=== PATIENT | female | born 1995 | race Caucasian/White ===

== ENCOUNTER 2022-09-07 05:04 | Inpatient (IN) | payer BC, SELFPAY ==
[2022-09-07] VITALS (22 sets, daily range): BP systolic 94–118; BP diastolic 57–77; PULSE 64–104; RESP 16–18; TEMP 36.3–37.2; O2SAT 96; BMI 28.1
[2022-09-07 06:04] LABS: Hemoglobin* 12.1 gm/dL (12.0-16.0)
[2022-09-07 06:49] LABS: SARS PCR* Negative SARS-CoV-2 (Negative)
--- NOTE | 2022-09-07 07:41 | P.OBHP_ITS ---
OB - H&P: HPI Labor/Induction History of Present Illness Time Seen by Provider: 07:41 Date Seen: 09/07/22 Chief Complaint: So is a 27 year old 6 para 4013 at 39 and 0/7 weeks gestation by LMP consistent with a 1st trimester ultrasound, who was scheduled for a repeat C- section today. However, on admission monitoring she was having contractions, has a history of 3 vaginal deliveries, and she and her spouse are planning on having 7 order a children. She also declines blood products and I reviewed with the patient and her spouse, Gm, that the more C-sections she has, the higher risk to her and future babies due to concerns for scar tissue and possible abnormal placentation. She states that she would prefer to have her water broken rather than use Pitocin for induction. She likes to labor in the shower and deliver on hands and knees which is completely fine. She has been feeling nonpainful contractions. Has noted normal movement. Her most recent delivery was an emergency after PROM at home. She and her spouse called 911 and took an ambulance to the hospital where she had an emergency C- section under general anesthesia. Baby was immediately transported to the [facility] in [place] and at 3 weeks of age. She is appropriately anxious and is asking preop questions. I did a bedside ultrasound to verify position which was LOT, on cervical exam her cervix is 2 cm dilated/80%/0/soft/posterior. Cervantes score: 9. Membranes are intact. She signed consent form understanding that we would not give her blood products unless her spouse recommended she get blood: This is for zoroastrian reasons. Risks associated with /TOLAC are due to uterine rupture = the scar on the uterus breaking open. Chance of uterine rupture 0.07%. If uterine rupture occurs: 50% of women require blood products due to internal bleeding (she declines), 25% require hysterectomy to control hemorrhaging, 3-4% of neonates have long-term neurologic problems (cerebral palsy) placental abruption at the time of uterine rupture resulting in lack of oxygenation, less than 1% or maternal mortality. Reviewed TOLAC vs. RLTCS. GENERAL APPEARANCE: Pleasant, , well-groomed woman in no acute distress. VITAL SIGNS: as noted in nursing notes HEAD: Normocephalic, atraumatic. THYROID: no masses, nodularity, tenderness or enlargement. LUNGS: Clear to auscultation bilaterally without wheezes, rales or rhonchi. HEART: Regular rate and rhythm with normal S1 and S2. No gallop, rub or murmur. ABDOMEN: Gravid. Soft, nontender, nondistended, with normal bowels sounds throughout. FUNDAL HEIGHT: 39 cm EFM: 140's, (+) accels, (-) decels, PRESENTATION: Vertex by Joshua's maneuvers and ultrasound. SVE: 2 cm/ 80 %/ 0/soft/posterior. Cervantes score: 9 EXTREMITIES: No cyanosis, clubbing, or edema. No varicosities. NEUROLOGIC: Normal gait and balance. Normal deep tendon reflexes at bilateral patella 2+/2, equal without clonus. PSYCHIATRIC: alert and oriented x3. Normal speech pattern, eye contact and affect. SKIN: Warm, dry, and well perfused. Good turgor. No lesions, nodules or rashes. Assessment: 27-year-old 6 para 4013 at 39 weeks 0 days gestation induction of labor for history of cord prolapse and loss with her most recent delivery. History of 3 vaginal deliveries. Shoulder dystocia with her 2nd baby. Plan: 1. Patient declines blood products. 2. AROM when able. 3. Patient would like to labor in the shower for pain control. 4. Expect vaginal delivery. 5. Patient understands that the OBGYN and operating room staff will be in the hospital until delivery once she is in active labor. Chief complaint: Maternity Narrative: So Tobar is a 27 year old female Meds Home Medications and Allergies Home Medications Medication Instructions Recorded Confirmed Type cholecalciferol (vitamin D3) 25 25 mcg PO QDAY 08/30/22 09/07/22 History mcg (1,000 unit) capsule cod liver oil 5 ml PO QDAY 08/30/22 09/07/22 History docosahexaenoic acid 200 mg mg PO 08/30/22 08/30/22 History capsule ( DHA) ferrous sulfate 325 mg (65 mg 325 mg PO QDAY 08/30/22 09/07/22 History iron) tablet (FeroSul) vitamin B complex (B 1 tab PO QDAY 08/30/22 09/07/22 History Complex-Vitamin B12 tablet) Allergies Allergy/AdvReac Type Severity Reaction Status Date / Time No Known Drug Allergies Allergy Verified 09/07/22 06:18 OB - H&P: Exam Physical Exam: Vital signs: Temp Pulse Resp BP 98.5 F 80 16 101/59 L 09/07/22 06:11 09/07/22 06:11 09/07/22 06:11 09/07/22 06:11 OB - Results Labs Labs: Short CBC 09/07/22 Range/Units 05:59 Hgb 12.1 (12.0-16.0) gm/dL
[2022-09-07 07:59] LABS: Hepatitis B Surface Antigen* Negative (Negative)
[2022-09-07 08:09] LABS: HIV 1/2/P24 Combo Screen* Negative (Negative)
[2022-09-07 08:31] LABS: Basophils Absolute Auto 0.04 K/uL (0.00-0.30); Basophils Percent Auto 0.4 % (0.0-3.0); Eosinophils Absolute Auto 0.13 K/uL (0.00-0.50); Eosinophils Percent Auto 1.2 % (0.0-7.0); Hematocrit 39.1 % (33.0-51.0); Hemoglobin* 13.1 gm/dL (12.0-16.0); Immature Granulocytes Abs Auto 0.08 K/uL (0.00-0.30); Immature Granulocytes Pct Auto 0.7 %; Lymphocytes Absolute Auto 2.53 K/uL (0.90-2.90); Lymphocytes Percent Auto 23.1 % (20-44); Mean Corpuscular HGB Conc 34 gm/dL (32-36); Mean Corpuscular Hemoglobin 31 pg (26-34); Mean Corpuscular Volume 94 fL (80-100); Monocytes Percent Auto 6.7 % (0.0-11.0); Neutrophils Absolute Auto 7.42 K/uL (1.7-7.0); Neutrophils Percent Auto 67.9 % (42.0-72.0); Platelet Count* 170 K/uL (140-440); RDW Coefficient of Variation % 13.4 % (11.5-15.5); Red Blood Count 4.17 m/uL (4.00-5.20); White Blood Count* 10.93 K/uL (4.50-11.00)
[2022-09-07 08:36] LABS: Slide Review Reflex No
--- NOTE | 2022-09-07 10:23 | PM.OBPNL ---
Subjective Time Seen by Provider: 10: Date Seen: 09/07/22 Narrative: Subjective: So is comfortable with contractions. Verbal consent obtained for artificial rupture of membranes. Vital signs: Per electronic medical record. EFM: Baseline 140s, + accelerations, - decelerations, moderate variability, reactive. Category 1. [place]: Contractions every 1-3 minutes. SVE: 4 cm/90 %/0. AROM at 10:15 a.m.: Clear fluid Assessment: 27-year-old 6 para 4013 at 39 weeks 0 days gestation undergoing TOLAC, induction of labor with AROM Plan: 1. Will hold Pitocin augmentation unless the patient does not make cervical change after AROM. 2. Planning to be in the shower for the active phase of labor. Objective Vital Signs: Last Vital Signs Temp 98.5 F 09/07/22 06:11 Pulse 104 H 09/07/22 10:01 Resp 16 09/07/22 06:11 BP 101/60 09/07/22 10:01
[2022-09-07] MEDS: LACTATED RINGERS 1000 ML 1,000 ML 125 ML IV (12:59)
[2022-09-07] MEDS: OXYTOCIN 30 unit/500 ML in NS 30 UNIT/500 ML BAG IVPB (13:00)
[2022-09-07] MEDS: IBUPROFEN 600 MG TABLET PO (17:22)
--- NOTE | 2022-09-07 17:54 | W.PM.VAGDELN ---
OB Procedure Vag Delivery Mother Details Mother Details: So is a 27 year-old, 6, Para 3, admitted on 09/07/22 at 39weeks 0 Days gestation. Additional Details Amniotic Membrane Status: AROM Amniotic Membrane Rupture Date: 09/07/22 Amniotic Membrane Rupture Time: 10:15 Amniotic Membrane Fluid Description: Clear Waterbirth: No Pitcoin: Yes Induction Method: per pitocin protocol and AROM Labor Onset: 09/07/2022 at 1400 Complete: 16:55 Pushin:55 Heart: heart tones during second stage were category 2 with variable decelerations to the 110's with contractions, moderate variability. Reassuring. Delivery Details Delivery Date: 09/07/22 Delivery Time: 17:03 Route of delivery: Infant Gender: Male Viability: Alive; Heart Rate Present Position at Delivery: OA Delivery Details: Delivered over first-degree perineal laceration via spontaneous vaginal delivery. was placed on maternal abdomen.? Cord was clamped and cut after the placenta delivered. Nose and mouth were bulb suctioned.? Infant weight pending. 1 Minute Interval Total Score: 7 5 Minute Interval Total Score: 8 Additional Details Shoulder Dystocia: No Placenta Delivery Time: 17:29 Placental Delivery Description: Spontaneous Delivery repair: other (No repair necessary.) Procedure Done: Global Laceration: Perineal - 1st Degree Blood Loss Measurement Type: EBL (150 mL) Bakri Used: No Sponge/Need Count Correct: Yes Cord Vessel Description: 3 Vessels Event Summary Status: Mother and were stable after delivery. The patient is planning on . The patient declined all vaccines, vitamin K and erythromycin eye ointment. 's name: Red
[2022-09-08] MEDS: IBUPROFEN 600 MG TABLET PO (02:09)
[2022-09-08 05:05] VITALS: BP 105/69; PULSE 96; RESP 16; TEMP 36.6; O2SAT 96
--- NOTE | 2022-09-08 07:36 | PM.OBDSVD1 ---
DS: Providers Provider Time Seen by Provider: 07:36 Date Seen: 09/08/22 Date of admission: 09/07/22 05:04 Primary care physician: Not a Local Provider Admitting Clinician: Judy Aguila MD Attending Physician on discharge: Judy Aguila MD Date of Discharge: 09/08/22 DS: Diagnosis Discharge Diagnosis (1) (vaginal after ): Status: Acute Exam Const: Vital Signs, click to edit/add: Vital Signs - 24 hr 09/07/22 08:21 09/07/22 10:01 09/07/22 13:10 Temperature Pulse Rate 86 104 H 98 Pulse Rate [Right Pulse Oximeter] Respiratory Rate Blood Pressure 107/69 101/60 106/62 Blood Pressure [Le ft Arm] Pulse [facility] 14:14 09/07/22 14:57 09/07/22 17:30 Temperature Pulse Rate 96 89 93 Pulse Rate [Right Pulse Oximeter] Respiratory Rate Blood Pressure 117/63 118/77 112/63 Blood Pressure [Le ft Arm] Pulse [facility]ximetry [facility]22 17:45 09/07/22 18:00 09/07/22 18:15 Temperature Pulse Rate 93 90 83 Pulse Rate [Right Pulse Oximeter] Respiratory Rate Blood Pressure 117/67 116/62 117/60 Blood Pressure [Le ft Arm] Pulse [facility]ximetry [facility] 18:30 09/07/22 18:45 09/07/22 19:00 Temperature Pulse Rate 86 95 85 Pulse Rate [Right Pulse Oximeter] Respiratory Rate Blood Pressure 114/60 112/60 110/64 Blood Pressure [Le ft Arm] Pulse Oximetry [facility] 19:27 09/07/22 19:30 09/07/22 10:45 Temperature 98.6 F Pulse Rate 88 84 Pulse Rate [Right Pulse Oximeter] Respiratory Rate Blood Pressure 114/57 L 117/64 Blood Pressure [Le ft Arm] Pulse Oximetry [facility]22 11:45 09/07/22 13:00 09/07/22 14:15 Temperature 98.1 F 99 F 98.1 F Pulse Rate Pulse Rate [Right Pulse Oximeter] Respiratory Rate 18 Blood Pressure Blood Pressure [Le ft Arm] Pulse Oximetry Oxygen Delivery Me thod 09/07/22 15:02 09/07/22 19:00 09/07/22 16:00 Temperature 98.1 F 98.3 F 98.6 F Pulse Rate Pulse Rate [Right Pulse Oximeter] Respiratory Rate 18 Blood Pressure 94/64 Blood Pressure [Le ft Arm] Pulse Oximetry Oxygen Delivery Me thod 09/07/22 19:15 09/07/22 23:03 09/08/22 05:05 Temperature 97.3 F L 97.9 F Pulse Rate Pulse Rate [Right Pulse Oximeter] 64 96 Respiratory Rate 16 16 Blood Pressure Blood Pressure [Le ft Arm] 109/69 105/69 Pulse Oximetry 96 96 Oxygen Delivery Me thod Room Air Room Air Room Air OB - DS: Summary Hospital Course Hospital Course: HOSPITAL COURSE: So is a 27 year old, G6 now P 5014 admitted on 09/07/2022 at 39 Weeks, 0 Days gestation for a scheduled repeat but decided to do a TOLAC as she and her spouse are planning on having 7-8 children and was recommended by her historiography teacher. She had an uncomplicated vaginal. She delivered a viable male infant. She is breast feeding. the patient has done well. Vitals have been stable. She has remained afebrile. Vital Signs: See EMR Discharge Examination GENERAL APPEARANCE: normal affect, alert, no distress MOOD: appropriate CHEST: clear to auscultation and percussion HEART: regular rate and rhythm ABDOMEN: soft, non-tender the uterine fundus is 2 cm Below Umbilicus, Midline and is appropriate for the stage of recovery. PERINEUM: mild edema of the perineum, there is a Periurethral Laceration 1st degree that is healing well. EXTREMITIES: normal and no edema Discharge Criteria patient is ambulating without assistance, urinating without difficulty, tolerating a regular diet without n/v, and with [adequate pain control] with po medications. She is normotensive. Disposition: Home/Self Care She is requesting discharge home. Peripartum Data Infant delivery method: Laceration description: Perineal - 1st Degree Procedures: Procedures Operation Date: 09/07/22 07:15 <No data on this case meets the specified criteria> complications: none [place] Infant Gender: Male Discharge Plan: Home Status at Discharge Cognitive/behavioral status at discharge: Normal. Functional status at discharge: independent ambulation Overall status at discharge: patient is back to baseline Time Spent with Patient Time attestation: Total time spent providing and/or coordinating discharge services: Time spent: Less than 30 minutes Discharge Plan Discharge Disposition: Home, Self-Care Date of Admission: 09/07/22 05:04 Primary Care Provider: Provider,Not a Local Condition: Stable Anticipated Discharge Date/Time: 09/08/22 09:00 Discharge Medications: New docusate sodium 100 mg Capsule 100 mg PO DAILY PRN (Reason: constipation) Qty: 100 0RF ibuprofen 600 mg Tablet 600 mg PO Q6H PRNQty: 30 0RF Continued DHA 200 mg capsule PO ferrous sulfate [FeroSul] 325 mg (65 mg iron) tablet 325 mg PO QDAY cod liver oil Oil 5 ml PO QDAY vitamin B complex [B Complex-Vitamin B12] Tablet 1 tab PO QDAY cholecalciferol (vitamin D3) 25 mcg (1,000 unit) capsule 25 mcg PO QDAY Discharge Orders: Discharge Order (Routine); Ordered 09/08/22 Ordered By: Judy Aguila Patient Education: Choosing Between Vaginal After () or Repeat... (GEN) Additional Instructions: Activity restrictions: For all deliveries: Nothing vaginally for 6 weeks: no tampons/intercourse After a vaginal delivery: No lifting or exercise restrictions. Return to work/school: 1. 6 weeks after a vaginal deliver Symptoms to report to doctor: -Bleeding that saturates more than one pad per hour ?-Passing clots larger than the size of a golf ball ?-Pain not relieved by prescribed medication ?-Fever above 100.4 degrees Fahrenheit ?-A foul vaginal odor ?-Difficulty in emotions, mood and functions ?-Thoughts of hurting yourself and/or ?-Painful, reddened area in your breast ?-Any drainage, redness or tenderness in your IV/epidural site ?-Severe headache that doesn't improve after taking medications ?-Changes in vision, including temporary loss of vision, blurred vision, and/or light sensitivity ?-Upper abdominal pain (usually under ribs on the right side) ?-Decrease in urination or painful, frequent urinating ?-Chest pain ?-Shortness of breath ?-Tenderness or pain with redness and/swelling in the calf(s) of your leg Follow-up: 1. Optional 2 week visit with a [facility] provider : discuss infant care/feeding concerns, screen for anxiety/depression, discuss control options. 2. A 6 week visit for an annual physical exam. consultation services are available to all mothers and babies for the first year after delivery.? To make an appointment, please call [phone]. Discharge Diet: Regular Follow Up Appointments: Provider,Not a Local [Primary Care Provider] - Judy Aguila MD [Staff Physician] - Forms: [employer] Info Instructions
[2022-09-08 08:24] LABS: Hemoglobin* 12.5 gm/dL (12.0-16.0)
[2022-09-08 09:00] VITALS: BP 108/73; PULSE 64; RESP 18; TEMP 36.4
== END 2022-09-08 10:38 | disposition home or self-care (01) | DRG 560 ==
PROVIDERS: Admitting Provider Obstetrics & Gynecology; Visit Provider Obstetrics & Gynecology
DX: O34.211 Maternal care for low transverse scar from previous cesarean delivery (principal); O70.0 First degree perineal laceration during delivery; Z3A.39 39 weeks gestation of pregnancy; Z37.0 Single live birth
CPT/HCPCS: 36415; 85018; 85025; 86703; 86850; 86900; 86901; 87340; 87635; A9270; J2274; J7120

== ENCOUNTER 2024-02-13 10:15 | Outpatient (CLI) | payer BC, SELFPAY ==
--- NOTE | 2024-02-13 10:15 | CRLHL7_ITS ---
For Patients: As a result of the Cures Act, medical imaging exams and procedure reports are released immediately into your electronic medical record. You may view this report before your referring provider. If you have questions, please contact your health care provider. INDICATION: First trimester scan, establish dates. COMPARISON: None. TECHNIQUE: Real-time fernando-scale imaging of the pelvis was performed. FINDINGS: Sonographic imaging demonstrates a single living intrauterine gestation. The embryo demonstrates a regular cardiac rate measuring 159 beats per minute. The embryo`s crown-rump length measurement of 1.2 cm corresponds to a gestational age of 7 weeks 2 days with a sonographic due date of 09/29/2024. There is a normal-appearing yolk sac. There are no gross abnormalities noted within the embryo at this early state of development. The gestational sac has a normal appearance. There is no evidence of a perigestational hemorrhage. The amount of fluid within the sac appears appropriate for gestational age. The cervix is closed. The myometrium appears normal. The ovaries are of normal size. Corpus luteal cyst left ovary measuring 12 x 9 x 10 millimeters. There are no suspicious fluid collections noted in the cul-de-sac. IMPRESSION: Normal first trimester OB ultrasound exam. Gestational age calculated at 7 weeks 2 days with a sonographic due date of 09/29/2024. Dictated by Wang Schultz MD @ 02/14/2024 6:42:53 AM (Electronically Signed)
== END 2024-02-13 10:16 | disposition home or self-care (01) ==
LOC: US 10:16
PROVIDERS: Visit Provider Physician Assistant
DX: Z34.91 Encounter for supervision of normal pregnancy, unspecified, first trimester (principal); Z3A.01 Less than 8 weeks gestation of pregnancy
CPT/HCPCS: 76817; 82728; 86592; 86703; 86704; 86706; 86762; 86787; 86803; 86850; 86900; 86901; 87086; 87340

== ENCOUNTER 2024-03-26 14:06 | Outpatient (CLI) | payer BC, SELFPAY ==
--- NOTE | 2024-03-26 14:45 | CRLHL7_ITS ---
For Patients: As a result of the Cures Act, medical imaging exams and procedure reports are released immediately into your electronic medical record. You may view this report before your referring provider. If you have questions, please contact your health care provider. INDICATION: Vaginal spotting in the setting of . Concern for possible failed . COMPARISON: 02/13/2024 TECHNIQUE: Grayscale pelvic ultrasound via a transabdominal approach. FINDINGS: [place] intrauterine . [place]-rump length of the embryonic pole is 2.1 cm. No demonstrable cardiac activity. IMPRESSION: Cessation of previously documented embryonic cardiac activity diagnostic for failed early . Dictated by Brian Wilson MD @ 03/26/2024 3:17:01 PM (Electronically Signed)
== END 2024-03-26 14:07 | disposition home or self-care (01) ==
LOC: US 14:06
PROVIDERS: Visit Provider Obstetrics & Gynecology
DX: O20.9 Hemorrhage in early pregnancy, unspecified (principal)
CPT/HCPCS: 76801

== ENCOUNTER 2024-06-25 09:04 | Outpatient (CLI) | payer BC, SELFPAY ==
--- NOTE | 2024-06-25 09:15 | CRLHL7_ITS ---
For Patients: As a result of the Century Cures Act, medical imaging exams and procedure reports are released immediately into your electronic medical record. You may view this report before your referring provider. If you have questions, please contact your health care provider. INDICATION: First trimester scan, establish dates. COMPARISON: None. TECHNIQUE: Real-time fernando-scale imaging of the pelvis was performed. FINDINGS: Sonographic imaging demonstrates a single living intrauterine gestation. The embryo demonstrates a regular cardiac rate measuring 169 beats per minute. The embryo`s crown-rump length measurement of 2.2 cm corresponds to a gestational age of 8 weeks 6 days with a sonographic due date of 01/29/2025. There is a normal-appearing yolk sac. There are no gross abnormalities noted within the embryo at this early state of development. The gestational sac has a normal appearance. There is and inferior perigestational hemorrhage measuring 2.9 x 0.7 x 0.9 cm. The amount of fluid within the sac appears appropriate for gestational age. The cervix is closed. The myometrium appears normal. The ovaries are of normal size. Corpus luteal cyst right ovary. There are no suspicious fluid collections noted in the cul-de-sac. IMPRESSION: Single living intrauterine with sonographic gestational age 8 weeks 6 days and sonographic due date 01/29/2025. Inferior subchorionic hemorrhage measures 2.9 x 0.7 x 0.9 cm. Dictated by Wang Schultz MD @ 06/25/2024 1:20:20 PM (Electronically Signed)
== END 2024-06-25 09:05 | disposition home or self-care (01) ==
LOC: US 09:06
PROVIDERS: Visit Provider Obstetrics & Gynecology
DX: Z34.91 Encounter for supervision of normal pregnancy, unspecified, first trimester (principal); O20.9 Hemorrhage in early pregnancy, unspecified; Z3A.08 8 weeks gestation of pregnancy
CPT/HCPCS: 76817

== ENCOUNTER 2024-06-25 10:14 | Outpatient (CLI) | payer BC, SELFPAY | END 2024-06-25 10:15 | disposition home or self-care (01) | PROVIDERS: PCP Advanced Practice Midwife; Visit Provider Advanced Practice Midwife | DX: Z34.91 Encounter for supervision of normal pregnancy, unspecified, first trimester (principal); Z3A.08 8 weeks gestation of pregnancy | CPT/HCPCS: 83020; 83021; 84443; 85660; 86592; 86703; 86704; 86706; 86762; 86787; 86803; 86850; 86900; 86901; 87086; 87340 ==

== ENCOUNTER 2024-09-10 10:55 | Outpatient (CLI) | payer BC, SELFPAY | END 2024-09-10 10:56 | disposition home or self-care (01) | LOC: US 10:56 | PROVIDERS: Visit Provider Obstetrics & Gynecology | DX: Z34.92 Encounter for supervision of normal pregnancy, unspecified, second trimester (principal); O43.122 Velamentous insertion of umbilical cord, second trimester; Z3A.21 21 weeks gestation of pregnancy | CPT/HCPCS: 76805; 76817 ==

== ENCOUNTER 2024-09-14 12:33 | Outpatient (CLI) | payer BC, SELFPAY | END 2024-09-14 12:34 | disposition home or self-care (01) | LOC: NFLDREF 12:34 | PROVIDERS: Visit Provider Obstetrics & Gynecology | DX: R10.2 Pelvic and perineal pain (principal); R82.90 Unspecified abnormal findings in urine | CPT/HCPCS: 87086 ==

== ENCOUNTER 2024-11-05 10:15 | Outpatient (CLI) | payer BC, SELFPAY | END 2024-11-05 10:16 | disposition home or self-care (01) | LOC: NFLDREF 11-08 08:13 | PROVIDERS: Visit Provider Obstetrics & Gynecology | DX: Z34.83 Encounter for supervision of other normal pregnancy, third trimester (principal) | CPT/HCPCS: 86592 ==

== ENCOUNTER 2024-12-18 08:50 | Outpatient (CLI) | payer BC, SELFPAY ==
--- NOTE | 2024-12-18 09:15 | CRLHL7_ITS ---
For Patients: As a result of the Cures Act, medical imaging exams and procedure reports are released immediately into your electronic medical record. You may view this report before your referring provider. If you have questions, please contact your health care provider. OB ULTRASOUND FOLLOW-UP, 12/18/2024 CLINICAL HISTORY: Velamentous cord insertion. COMPARISON: None. TECHNIQUE: Real time fernando scale imaging of the fetus was performed. Transabdominal imaging performed. FINDINGS: ANDI by LMP: 01/29/2025. GA: 34 weeks 0 days. GESTATION: Single. CERVIX: Not visualized. POSITIONING: Vertex. AMNIOTIC FLUID: 7.5 cm SDP. PLACENTA: Technique: TA. Placenta Position: Anterior. DOPPLERS: Heart Rate: 124 bpm. BIOMETRY: BPD: 9.0 cm, 36 weeks 2 days. 95% HC: 32.7 cm, 37 weeks 1 day. 88% AC: 32.3 cm, 36 weeks 1 day. 96% FL: 6.5 cm, 33 weeks 3 days. 27% FL/AC Ratio: 20.12% HC/AC Ratio: 1.02. EFW: 2717 grams, 6 lb 0 oz. Age by this US: 35 weeks 5 days. ANDI by this US: 01/17/2025. Percentile by ANDI: 87% IMPRESSION: 1. Sonographic gestational age 35 weeks 5 days and sonographic due date 01/17/2025. Sonographic age 12 days ahead of the clinical age. 2. Estimated weight 87th percentile. Abdominal circumference 96th percentile. Wang Schultz M.D. Diagnostic Radiologist [email or web address] Transcribed: 10:56 am DW/Dictated by: Wang Schultz MD @ 12/21/2024 6:14:00 AM (Electronically Signed)
== END 2024-12-18 08:51 | disposition home or self-care (01) ==
LOC: US 08:50
PROVIDERS: Visit Provider Obstetrics & Gynecology
DX: O43.123 Velamentous insertion of umbilical cord, third trimester (principal); O36.63X0 Maternal care for excessive fetal growth, third trimester, not applicable or unspecified; Z3A.34 34 weeks gestation of pregnancy
CPT/HCPCS: 76816

== ENCOUNTER 2025-01-07 10:01 | Outpatient (CLI) | payer BC, SELFPAY ==
[2025-01-08 09:38] LABS: Strep B DNA Probe Negative (Negative)
[2025-01-08 10:07] LABS: Strep B Susceptibility Needed? No
== END 2025-01-07 10:02 | disposition home or self-care (01) ==
PROVIDERS: Visit Provider Obstetrics & Gynecology
DX: O09.93 Supervision of high risk pregnancy, unspecified, third trimester (principal); R06.02 Shortness of breath; Z3A.36 36 weeks gestation of pregnancy
CPT/HCPCS: 82565; 82570; 84156; 84450; 84460; 84520; 87081; 87653

== ENCOUNTER 2025-01-10 23:35 | Outpatient (CLI) | payer BC, SELFPAY ==
[2025-01-11 01:02] VITALS: BP 106/60; PULSE 84; TEMP 36.7
[2025-01-11 01:55] LABS: Amnisure Rom* Negative; Clue Cells <20% Clue Cells Seen (None Seen); Trichomonas No Trichomonas Seen (None Seen); Yeast No Yeast Seen (None Seen)
--- OUTSIDE RECORDS SUMMARY | 2025-01-11 02:00 | XMS_ITS | Clinical Summary ---
Author Organization [facility] Address [address] [place] [id number] Care Team Providers Care Business Analytics Director Name Role Phone Abimbola aGyle MD Unavailable U Taina Brumfield NP Primary Care Provider [phone] Allergies No known active allergies Medications vitamin-folic acid 1 mg ( VITAMIN) tablet/capsule Take 1 tablet by mouth once daily. 0 10/15/2016 Active Famotidine-Ca Carb-Mag Hydrox (Pepcid Complete) 10-800-165 mg chewIndications: Chronic GERD Chew 20 mg by mouth two times daily. 360 Tablet 11/30/2022 Active FeroSuL 325 mg (65 mg iron) tablet Take 1 Tablet by mouth once every other day. 06/29/2024 Active progesterone micronized 200 mg capsule Insert 200 mg into the vagina. 09/10/2024 Active Active Problems Problem Noted Date Diagnosed Date Major depressive disorder, s roland episode, severe without psychotic features 12/15/2014 Anxiety 12/15/2014 Estimated Date of Delivery Comme nts Yes 01/29/2025 Resolved Problems Problem Noted Date Diagnosed Date Resolved Date 02/04/2021 11/27/2022 Umbilical cord prolapse 02/04/202111/12 care, subsequent pr egnancy, unspecified trimester 08/19/2017 11/27/2022 Overview (08/19/2017): Care Provider: VRK, Baby Doctor: Dr. Benita Jane Employer [employer], Work/ [employer], Contact # [phone], Employer [employer] Feeding breast, circumcision:yes Short interval between pregnancies Short interval between pregn ancies complicating , antepartum 08/19/201711/27 Acute blood loss anemia 09/01/2016 04/09/2016 Vacuum extraction, delivered , current hospitalization 09/01/2016 10/15/2016 Vacuum extraction, delivered , current hospitalization 08/31/2016 10/15/2016 Normal labor 08/30/2016 10/15/2016 Supervision of normal first 03/30/2016 10/15/2016 Overview (04/30/2016): Care Provider: Nick NICOLE Doctor: Dr. Benita Jane Employer [employer], Work/ [employer], Contact # [phone], Employer [employer] Feeding breast, Gender GIRL!! Postoperative abdominal pain 11/27/2022 Encounters Date Type Department Care Team Description 01/10/2025 7:43 PM CDT - 01/10/2025 9:36 PM CDT Hospital Encounter [address] [address] Wang Hernández MD Discharge Disposition: Home Self Care 01/10/2025 Hospital Encounter [address] [place] [address] 01/10/2025 Travel 10/19/2024 11:15 AM CDT Office Visit [address] [address] Jennie Nagy PA Back Pain 10/19/2024 Travel from Last 3 Months Immunizations Immunization Administration Dates Next Due DTP-HIB 1994,1994,1994 DTaP 11/01/2006,01/20/1999,07/30/1995 Hepatitis B (Peds) 1994,1994, 994 Influenza, IIV3 (Age >=3 years) 05/03/2016 Influenza, IIV4 05/03/2016 MENINGOCOCCAL VACCINE 2 VIAL 2MO-55YO (MENVEO) 11/02/2014 MMR 01/20/1999,07/30/1995 Oral Polio Vaccine 08/23/1998, 6,1994,07/05 Tdap 07/17/2016 Tuberculin (PPD) 01/28/2015,01/13/2015, 5 Family History Medical History Relation Name Comments Good Health Brother 1 Good Health Brother 2 Good Health Father Good Health Maternal Grandfather Cancer-colon Maternal Grandmother Cancer-pancreatic Maternal Grandmother Depression Mother Heart Disease Mother Hypertension Mother Alzheimer's disease Paternal Grandfather Cancer Paternal Grandmother Cancer-pancreatic Paternal Grandmother Depression Sister 1 Zuri Relation Name Status Comments Brother 1 Alive Brother 2 Alive Father Alive Maternal Grandfather Alive Maternal Grandmother Mother Alive Paternal Grandfather Paternal Grandmother Sister 1 Zuri Alive Sister 2 Hui Alive Social History Tobacco Use Types Packs/Day Years Used Date Smoking Tobacco: Never Smokeless Tobacco: Never Comments:both parents smoke Alcohol Use Standard Drinks/Week Comments No 0 (1 standard drink = 0.6 oz pur e alcohol) PHQ-2 Answer Date Recorded PHQ-2 TOTAL SCORE 3 06/20/2023 Social Connections Answer Date Recorded Do you often feel lonely or isolated from those around you? 0 06/20/2023 Financial Resource Strain Answer Date R ecorded Difficulty of Paying Living Expenses 3 06/20/2023 Difficulty of Paying Living Expenses Not on file 06/20/2023 Food Insecurity Answer Date Recorded Do you worry your food will run out before you are able to buy more? 1 06/20/2023 Transportation Needs Answer Date Record ed Does lack of transportation keep you from medica l appointments? 1 06/20/2023 Does lack of transportation keep you from work, meetings or getting things that you need? 1 06/20/2023 Housing Stability Answer Date Recorded What is your housing situation today? 1 06/20/2023 Interpersonal Safety Answer Date Record ed Are you being hit, kicked, p ushed or yelled at (see row info)? No 01/10/2025 Interpersonal Safety Abuse 12 - 18 Not on file 01/10/2025 Interpersonal Safety Ambulatory Vulnerability No t on file 01/10/2025 Utilities Answer Date Recorded Do you have trouble paying f or utilities (for example, heat, electricity, water, phone)? 1 06/20/2023 Estimated Date of Delivery Comme nts Yes 01/29/2025 Sex and Gender Information Value Date Recorded Sex Assigned at Not on file Legal Sex Female 5:49 AM COMPLIANCE CLERK Gender Identity Not on file Sexual Orientation Not on file Occupation Industry Job Start Date Job End Date Not on file Not on file Not on file Not on file Obstetrics History Para Term AB IAB SAB Ectopic Multiple Livin g Live Births 8 4 3 1 1 0 3 4 Date Outcome GA Total Labor Labor/2nd/3rd Weight Sex Type Anes PTL Manda A1 A5 Name Clin 2016 Term 38w 5d 3.4 kg (7 lb 8 oz) F VAGINA L VACU Epidur al Livin g Coral ine AAR Complications:None 7 SAB SPONTA NEOUS 2017 Term F Vag N Livin g Comments:Shoulder dyst ocia 2018 Term M Vag Livin g Comments:Baby with imp erforate anus 2020 Para 0h 02m 0h 02m 4.01 kg (8 lb 13.5 oz) M C-Sect ion Genera l Neona carolin Demis e 0 2 Jer IBARRA, Kane Olsen MD Complications:Cord prolapse Living Status Comments:Hypox ic 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 See encounter summary. Notes Progress Notes - Hospital En counter - 01/10/2025 - GA:37w2d 01/11/2025 - 37w3d - Judy Sol RN Patient discharged home at 2136 pm. Patient leaving AMA, does not want to stay for monitoring for [address] Hernández advised. AVS given to patient. Advised patient that she is still tyree every 2-5 minutes and she should be monitored at her chosen facility [facility]. She was advised that she is a grandmultip and her delivery, if she is in labor, will probably go faster and these contractions could be early labor. Patient aware of the risks and choosing to leave [facility] facility. Patient left AMA, paperwork signed. Judy Sol RN .................... 01/10/2025 9:40 PM 01/11/2025 - 37w3d - Judy Sol RN OB Triage Note Patient presents to triage at 1948 for evaluation of leakage of fluid. Patient is accompanied by none. Patient is a with a due date of 01/29/2025, Alternate ANDI Entry. So is 37w2d weeks' gestation as of 01/10/2025. records obtained and reviewed. Patient reports the following symptoms: Ruptured Membranes Unsure complicated by: none OB Medical Screening Exam BP 106/62 (Cuff Size: Adult Regular) Pulse 81 Temp 98.1 F (36.7 C) Resp 18 Ht 1.549 m (5' 1) Wt 62.1 kg (137 lb) LMP (Exact Date) SpO2 97% BMI 25.89 kg/m EFM and toco applied after verbal consent obtained. Triage assessment completed. ASSESSMENT BABY A Movement: Present Monitor Mode: External/US Decelerations / Type: Prolonged SVE: yes Dilation: 3 Effacement (%): 70 Station: -2 Cervical Consistency: Medium Cervical Position: Middle Method: Manual OB Examiner: NPV RN CONTRACTIONS Is Patient Having Contractions?: Yes Plan of Care Provider, Dr. Hernández, informed of: patient complaint(s), reason for visit, OB/medical history, patient vital signs, assessment, contractions, membrane status and SVE. Plan per provider: Patient to be monitored for [address] Hernández at bedside and explained to patient to stay for monitoring due to contraction pattern. Patient states she does not feel like she is in labor and would like to leave and go to her hospital in [place] when she feels like she is in labor. Patient would like to leave, AMA paperwork signed at 2052 pm on 01/10/2025. Judy Sol RN .................... 01/10/2025 8:57 PM 01/11/2025 - 37w3d - Gilles Hernández MD So Tobar presents for evaluation for ROM - she was evaluated for ROM in [place] not long ago which was negative, and she was advised to come to the nearest hospital this time due to distance for evaluation this time around. Presently is at 37w2d She has been tyree intermittently for a few days now - it's tolerable from a discomfort standpoint, and is not consistent. She has a history of x 3 with emergent PCS due to cord prolapse out of hospital ( loss), and a (2022). This is complicated by a short cervix (was on progesterone), velamentous cord insertion without vasa previa She is a planned and notes she does not wish to deliver here unless it is emergent / recommended, would prefer to deliver in [place]. On the monitor she had a category 1 tracing initially followed by a spontaneous deceleration x 3 minutes into the 60s. This resolved with position changes, with return to category 1 tracing, reactive, post deceleration and recovery. Contractions initially irregular Q1-3 minutes, presently is on side with irregular contractions picking up again. Advised my recommendation would be for 4 hours of continuous monitoring with evaluation for labor, at minimum. She informs me she would likely not be interested in this and would prefer to go to [place], especially as she would prefer to go there if she is in labor. Reviewed we will not keep her here against her will, but reiterated my recommendations and if she so chooses to leave AMA this is certainly her prerogative. She is agreeable to at least getting 1 hour of monitoring here, and if tracing remains category 1 I would defer to her decision making on whether she is willing to stay for the extended monitoring here, or leave AMA All questions answered Wang Hernández MD .................... 01/10/2025 8:55 PM 01/11/2025 - 37beto - Yuly Ibarra RN 2018 - 3 min decel down into the high 70's low 60s. Pt doing position changes as well as going hands and knees. Dr. Hernández called to come at 2020. While on phone, T recovered. Dr. Hernández will be in shortly Yuly Ibarra RN .................... 01/10/2025 8:30 PM 01/11/2025 - 37beto - Judy Sol RN 1948- Patient arrived to labor and delivery for possible rupture of membranes. Obtained Urine sample and Amniosure swab. Sent specimens to lab. EMF applied at 2000 pm. BP 106/62 (Cuff Size: Adult Regular) Pulse 81 Temp 98.1 F (36.7 C) Resp 18 Ht 1.549 m (5' 1) Wt 62.1 kg (137 lb) LMP (Exact Date) SpO2 97% BMI 25.89 kg/m Judy Sol RN .................... 01/10/2025 8:57 PM Last Filed Vital Signs Vital Sign Reading Time Taken Comments Blood Pressure 106/62 01/10/2025 8:04 PM CDT Pulse 81 01/10/2025 8:04 PM CDT Temperature 36.7 C (98.1 F) 01/10/2025 8:04 PM CDT Respiratory Rate 18 01/10/2025 8:04 PM CDT Oxygen Saturation 97% 01/10/2025 8:04 PM CDT Inhaled Oxygen Concentration - - Weight 62.1 kg (137 lb) 01/10/2025 8:17 PM CDT Height 154.9 cm (5' 1) 01/10/2025 8:17 PM CDT Body Mass Index 25.89 01/10/2025 8:17 PM CDT Plan of Treatment Health Maintenance Due Date Last Done Comments COVID-19 vaccine series ( season) 2024 BMI (ht and wt on same day) for age 18+ 06/20/2024 06/20/2023, 02/21/2022, 04/12/2021, Additional history exists Depression screening for age 12+ 06/20/2024 06/20/2023, 11/30/2022, 11/22/2022, Additional history exists Influenza Vaccine (Season Ended) 2025 05/03/2016, 05/03/2016 Pap test for age 21-65 06/20/2026 06/20/2023, 2014 Tetanus booster 07/17/2026 07/17/2016 Hepatitis B series for 19+ Completed 10/24, 1994, 1994 Tdap Completed 07/17/2016 HIV for age 15-65 Completed 02/04/2021, , 03/30/2016 Hepatitis C screening for age 18-79 Completed 02/04/2021, 02/23/2019, 01/16/2018, Additional history exists Pneumococcal series for age 6-49 Aged Out No longer eligible based on patient's age to complete this topic RSV vaccine for adults or (No Doses Required) Completed Procedures Procedure Name Priority Date/Time Associated Diagnosis Comments URINALYSIS MICROSCOPIC STAT 01/10/2025 7:57 PM CDT AMNISURE ROM Today 01/10/2025 7:57 PM CDT UA W/ SEDIMENT EXAM REFLEXED PER CRITERIA STAT 01/10/2025 7:57 PM CDT UNIVERSITY CONTROLLER THIN PREP PAP SCREEN IMAGED Today 06/20/2023 12:37 PM COMPLIANCE CLERK Screening for cervical cancer ANTI HIV 1/2 STAT 02/04/2021 5:27 PM CDT ANTI HCV STAT 02/04/2021 5:27 PM CDT from Last 3 Months or Most Recently Relevant to Health Maintenance Results * Amnisure ROM (01/10/2025 7:57 PM CDT) AMNISURE ROM Negative, NO MEMBRANES RUPTURE Negative, NO MEMBRANES RUPTURE 01/10/2025 8:16 PM CDT [facility] Body Fluid VAGINAL SWAB / Unknown Non-Blood / Unknown 01/10/2025 7:57 PM CDT 01/10/2025 8:01 PM CDT Wang Hernández MD LABORATORY Final Result [facility] [address] [place] [address] * URINALYSIS MICROSCOPIC (01/10/2025 7:57 PM CDT) RBC None Seen 0-2, None Seen /HPF 01/10/2025 8:21 PM CDT [facility] WBC 0-2 0-2, 3-5, None Seen /HPF 01/10/2025 8:21 PM CDT [facility] BACTERIA Few None Seen, Rare, Few Bacteria/H PF 01/10/2025 8:21 PM CDT [facility] EPITHELIAL CELLS Few None Seen, Few Epi/HPF 01/10/2025 8:21 PM CDT [facility] Urine URINE SPECIMEN / Unknown Non-Blood / Unknown 01/10/2025 7:57 PM CDT 01/10/2025 8:01 PM CDT us Wang Hernández MD URINE Final Result [facility] [address] [place] [address] * (ABNORMAL) Urinalysis W Reflex Microscopic if Positive (01/10/2025 7:57 PM CDT) COLOR Yellow Yellow Color 01/10/2025 8:14 PM CDT [facility] CLARITY Clear Clear Clarity 01/10/2025 8:14 PM CDT [facility] SPECIFIC GRAVITY,URINE <=1.005(A) 1.010, 1.015, 1.020, 1.025 01/10/2025 8:14 PM CDT [facility] PH,URINE 7.0 6.0, 7.0, 8.0, 5.5, 6.5, 7.5, 8.5 01/10/2025 8:14 PM CDT [facility] UROBILINOGEN, QUALITATIVE Normal Normal EU/dl 01/10/2025 8:14 PM CDT [facility] PROTEIN, URINE Negative Negative mg/dL 01/10/2025 8:14 PM CDT [facility] GLUCOSE, URINE Negative Negative mg/dL 01/10/2025 8:14 PM CDT [facility] KETONES,URINE Negative Negative mg/dL 01/10/2025 8:14 PM CDT [facility] BILIRUBIN,URI NE Negative Negative 01/10/2025 8:14 PM CDT [facility] OCCULT BLOOD,URINE Negative Negative 01/10/2025 8:14 PM CDT [facility] NITRITE Negative Negative 01/10/2025 8:14 PM CDT [facility] LEUKOCYTE ESTERASE Trace(A) Negative 01/10/2025 8:14 PM CDT [facility] Urine URINE SPECIMEN / Unknown Non-Blood / Unknown 01/10/2025 7:57 PM CDT 01/10/2025 8:01 PM CDT us Wang Hernández MD URINE Final Result [facility] [address] [place] [address] * UNIVERSITY CONTROLLER THIN PREP PAP SCREEN IMAGED [[id number]] (06/20/2023 12:37 PM COMPLIANCE CLERK) Case Report Gynecologic Cytology Report Case: [id number] Authorizing Provider: Taina Vail NP Collected: 06/20/2023 1237 Ordering Location: [facility] Received: 06/20/2023 1237 First Screen: Jj Fleming Specimen: UNIVERSITY CONTROLLER ThinPrep Vial Screening, Cervical 06/28/2023 12:04 PM COMPLIANCE CLERK [facility] INTERPRETATION/ RESULT NEGATIVE FOR INTRAEPITHELIAL LESION OR MALIGNANCY (NIL) (none) 06/28/2023 12:04 PM COMPLIANCE CLERK [facility] at 1204 COMPLIANCE CLERK SPECIMEN ADEQUACY Satisfactory for evaluation Endocervical component present 06/28/2023 12:04 PM COMPLIANCE CLERK [facility] HPV REQUEST HPV not requested 2022 12:04 PM COMPLIANCE CLERK [facility] Date of LMP unknown 06/28/2023 12:04 PM COMPLIANCE CLERK [facility] Last Pap Date 11/02/14 06/28/2023 12:04 PM COMPLIANCE CLERK [facility] Last Pap Result NIL 12:04 PM COMPLIANCE CLERK [facility] Abnormal Pap or [place] Bx in last 5 years No 06/28/2023 12:04 PM COMPLIANCE CLERK [facility] Menstrual Status Regular Periods 06/28/2023 12:04 PM COMPLIANCE CLERK [facility] [place] Bx Done Today No 06/28/2023 12:04 PM COMPLIANCE CLERK [facility] Additional Information None given 06/28/2023 12:04 PM COMPLIANCE CLERK [facility] Comment: Cytology is screened at [facility], [facility] - [address], [place] [address] and [facility] - [address] [place] [address] [place] [address] and [facility] [address] [place] [address] Interpreted at [facility] - [address] [place] [address] [place] [address] Automated Review Successful 06/28/2023 12:04 PM COMPLIANCE CLERK [facility]- ENTRAL LABORATORY Comment:Specimen processed s uccessfully by automated special inspector device, [employer] Imaging System, [employer] Note The pap test is a screening technique, not a diagnostic procedure. It is used primarily to screen for squamous cancers and precursor lesions. Published studies have shown that it is subject to both false negative and false positive results. The pap test should not be used as the sole means to diagnose or exclude pre-malignant and malignant lesions. 06/28/2023 12:04 PM COMPLIANCE CLERK [facility]- ENTRAL LABORATORY Other (Cervical) Non-Blood / Unknown 06/20/2023 12:37 PM COMPLIANCE CLERK 06/20/2023 12:37 PM COMPLIANCE CLERK Comment:This procedure was o riginally ordered at [facility]. us Taina Vail BILINGUAL SPEECH LANGUAGE PATHOLOGIST PATHOLOGY/CYTOLOGY Final R esult [facility] [address] [place] [address], [place] * ANTI HCV (02/04/2021 5:27 PM CDT) HEPATITIS C ANTIBODY Non-React hannah Non-React hannah 02/05/2021 2:44 PM CDT [facility] TRAL LABORATORY Comment:Antibodies to HCV no t detected; does not exclude the possibility of exposure to HCV. Blood BLOOD SPECIMEN / Unknown Venipuncture / Unknown 02/04/2021 5:27 PM CDT 02/04/2021 5:35 PM CDT us Kane Arguello MD SEND OUTS Final Resul t [facility] [address] [place] [address], [place] * ANTI HIV 1/2 (02/04/2021 5:27 PM CDT) HIV-1/HIV-2 ANTIBODY Non-Reacti ve Non-Reacti ve 02/05/2021 2:43 PM CDT [facility] TRAL LABORATORY Comment:HIV-1 p24 and HIV-1/ HIV-2 Ab not detected. Blood BLOOD SPECIMEN / Unknown Venipuncture / Unknown 02/04/2021 5:27 PM CDT 02/04/2021 5:35 PM CDT us Kane Arguello MD SEND OUTS Final Resul t [facility] [address] [place] [address], [place] from Last 3 Months or Most Recently Relevant to Health Maintenance Insurance [employer] [place] [employer] [place] Advance Directives * Full Code (Latest Code Status on File) Date Activated Date Inactivated Comments 02/04/2021 11:02 AM 02/04/2021 9:08 PM Question Answer Comments Code Status Discussion: Discussed * Full Code Date Activated Date Inactivated Comments 08/31/2016 12:31 PM 09/02/2016 3:53 PM * Full Code Date Activated Date Inactivated Comments 08/30/2016 11:10 PM 08/31/2016 12:31 PM * Full Code Date Activated Date Inactivated Comments 08/30/2016 8:56 PM 08/30/2016 11:10 PM Care Teams Business Analytics Director Relationship Specialty Start Date End Date Taina Vail NP [address] [place] [address] PCP - General Nurse Practitioner - Family 11/22/22 Abimbola Gayle MD Family Practice Family Practice 04/07/20
--- NOTE | 2025-01-11 02:27 | PC.OBNST ---
NST Note NST Note Start: 01/10/25 23:49 Freq: ONCE Status: Active Protocol: Document 01/11/25 02:26 LISA (Rec: 01/11/25 02:27 LISA [id number]) NST Note 8 Para (# of births) 5 EDC 01/29/25 Gestational Age In 37 Weeks & 3 Days Weeks & Days Patient Presented Contractions/cramping,Leaking fluid with Complaint(s) of Reactive Yes RN Darek Carias, EHSAN Date 01/11/25 Reactive Yes EHSAN Ambrocio RN Date 01/11/25 OB NST charge Yes Complete NST Note Yes via Write Note The provider's electronic signature indicates the NST is reactive/appropriate for gestational age. *Note to provider: If an addendum is required, open the patient's chart and click on the note under the Nurse/Allied Health tab.
[2025-01-11 02:44] LABS: Bacterial Vaginosis* Negative (Negative); Candida glab/krus NOT DETECTED (No Detected); Candida species NOT DETECTED (No Detected); Trichomonas vaginalis NOT DETECTED (No Detected)
== END 2025-01-11 02:02 | disposition home or self-care (01) ==
LOC: OB OUT 23:35 → OB 23:35
PROVIDERS: Absent Provider Obstetrics & Gynecology; Visit Provider Obstetrics & Gynecology
DX: O47.1 False labor at or after 37 completed weeks of gestation (principal); Z3A.37 37 weeks gestation of pregnancy
CPT/HCPCS: 59025; 81513; 84112; 87210; 87481; 87661; G0463

== ENCOUNTER 2025-01-23 08:06 | Inpatient (IN) | payer BC, SELFPAY ==
[2025-01-23] VITALS (20 sets, daily range): BP systolic 97–112; BP diastolic 54–67; PULSE 62–87; RESP 16; TEMP 36.5–36.8; O2SAT 97–100; BMI 26.5
[2025-01-23 08:57] LABS: Hematocrit 32.5 % (33.0-51.0); Hemoglobin* 10.5 gm/dL (12.0-16.0); Immature Granulocytes Abs Auto 0.08 K/uL (0.00-0.30); Immature Granulocytes Pct Auto 0.9 %; Lymphocytes Absolute Auto 1.89 K/uL (0.90-2.90); Mean Corpuscular HGB Conc 32 gm/dL (32-36); Mean Corpuscular Hemoglobin 31 pg (26-34); Mean Corpuscular Volume 97 fL (80-100); RDW Coefficient of Variation % 14.1 % (11.5-15.5); Red Blood Count 3.35 m/uL (4.00-5.20); White Blood Count* 9.28 K/uL (4.50-11.00)
[2025-01-23 09:21] LABS: Slide Review Reflex No
--- NOTE | 2025-01-23 09:46 | W.PM.LDBA ---
Subjective History of Present Illness Time Seen by Provider: 08:15 Date Seen: 01/23/25 Narrative: So is being admitted to Labor and Delivery for an elective induction of labor, TOLAC. She is a 29 year old at 39 and 1/9 weeks gestation. Her full history and physical was completed by Dr. Carmichael on 01/07/2025. Please see this for details. She is here with her spouse, Gm. Specific Issues/Plans Partner: Gm? Declines Blood products: planning to self-donate 2 units pRBC's, enc healthcare directive. 01/07/25 confirmed with blood bank 1 unit of her blood is already available at [facility]. Second unit was collected on 01/06/25, pending arrival to [facility]. Children: Beck, Renetta, Carter, Red. Baby that = Justin. Baby: Boy! Mingo H&P:? by CGM on 01/07/25 #Velamentous cord insertion, 3.0cm from the internal cervical os. No evidence of vasa previa on [place] US. MFM consult 09/22/24: insertion 3.0cm from os, no vasa previa. US for EFW Q4wks starting at 28 weeks: Patient declined. Ordered USN for EFW for 32 and 36 weeks. (No Show for 32 week growth US) Vaginal USN to assess cord insert distance from the internal cervical os at 28 wks. # Hx C/S with subsequent successful , desires VTOLAC 4th child born via emergency C/S for prolapsed cord (occurred at home w/ SROM), at 3 weeks? with [place] 09/07/22 Desires admission Ultrasound to ease her anxiety of funic presentation #?Desires TOLAC Chance of successful : 93.3% Consent form given to the patient to review on 07/23/2024 Consent signed: 09/10/2024: Desires to avoid transfusion of blood products if at all possible. Completed self directed blood transfusions x2. Would deliver at home if cannot deliver here. 36 wk ultrasound for EFW:completed at 34 weeks # Short cervix = 2.3cm at 20wk US. Vaginal progesterone 200mg QHS until 37 weeks.- Discontinued at 36 weeks. MFM consult 09/22/24: cervical length 1.9cm. Continue vaginal progesterone no addition US for cervical length. Pelvic rest #? Hx of born with imperforate anus (child #3 Carter: he has a colostomy)? child #3 #Hx of child born with abnormal urachus formation? child #4, pt reported not indicated in other records #Hx of anxiety and depression EULA 10/ PHQ 10 at NOB not currently treated, declined trial of antidepressant #Migraines #Hx of Vacuum delivery, first baby #Hx of Shoulder Dystocia, second baby #Anemia in -RX every other day #Not immune to Hep B: declined booster #Bleeding in early JOSE RAMON 2.9 x 0.7 x 0.9cm Declined NIPT Imaging:??? 09/10/24 20wk FAS: Variable positions. SDP 6.8cm. Post placenta. 3 vessel cord. Velamentous insertion 3.0cm from the internal os of the cervix (no evidence of vasa previa on [place] scan). Short cervix = 2.3cm. No anatomic abnormalities identified. EFW: 377.5gm, 13oz, 91%. Referred to [facility] and started vaginal progesterone 200mg PV QHS. 09/22/2024: [facility] LVL 2 ([place]). Vtx. SDP subjectively normal. Cervix 1.9cm in length. Velamentous cord insertion 3cm from internal cervical os, no evidence of vasa previa. No anatomic abnormalities. 12/18/24: Growth US: EFW: EFW 87%, AC 96%. SDP 7.5 cm. Vaccinations:?? COVID: declined 06/25 Flu: declined 06/25 Tdap: declined 32 week mental health: []? Last pap:? 06/20/23 NIL, HPV not tested? OB - Problem Based A/P Additional Plan (1) Encounter for planned induction of labor: Status: Acute (2) Desires (vaginal after ) trial: Status: Resolved Plan 1. Start Pitocin. Patient prefers low-dose. 2. AROM when able and patient gives permission. 3. The patient is a candidate for all options for analgesia she is planning an unmedicated . 4. GBS negative 5. Declines blood products but does have 1 unit of autologous blood available in the lab. 6. Blood type O positive OB Exam Physical Exam Narrative: GENERAL APPEARANCE: Pleasant, , well-groomed woman in no acute distress. VITAL SIGNS: as noted in nursing notes HEAD: Normocephalic, atraumatic. THYROID: no masses, nodularity, tenderness or enlargement. LUNGS: Clear to auscultation bilaterally without wheezes, rales or rhonchi. HEART: Regular rate and rhythm with normal S1 and S2. No gallop, rub or murmur. ABDOMEN: Gravid. Soft, nontender, nondistended, with normal bowels sounds throughout. EFM: Baseline: 130bpm. Accelerations: Present. Decelerations: Absent. Moderate variability. Reactive. TOCO: Rare contractions every 20-30 minutes. PRESENTATION: Vertex by Joshua's maneuvers. Bedside ultrasound performed to verify vertex presentation without evidence of nuchal cord presentation. SVE: 4 cm/ 80 %/ -1/mid/soft. Cervantes score: 9 EXTREMITIES: No cyanosis, clubbing, or edema. No varicosities. NEUROLOGIC: Normal gait and balance. Normal deep tendon reflexes at bilateral patella 2+/2, equal without clonus. PSYCHIATRIC: alert and oriented x3. Normal speech pattern, eye contact and affect. SKIN: Warm, dry, and well perfused. Good turgor. No lesions, nodules or rashes.
[2025-01-23] MEDS: OXYTOCIN 30 unit/500 ML in NS 30 UNIT/500 ML BAG IVPB (11:53)
[2025-01-23] MEDS: LACTATED RINGERS 1000 ML 1,000 ML 125 ML IV (11:54)
--- NOTE | 2025-01-23 16:00 | PM.OBPNL ---
Subjective Time Seen by Provider: 16:01 Date Seen: 01/23/25 Narrative: Subjective: The patient is feeling contractions but they are not particularly intense. Verbal consent obtained to perform AROM. Pitocin: 4 milliunits/minute. Vital signs: Per electronic medical record. EFM: Baseline 130bpm, positive accelerations, negative decelerations, moderate variability, reactive. Category 1. [place]: Contractions every 3-5 minutes. SVE: 6cm/90%/0. AROM clear fluid at 3:56Am Assessment: 29-year-old 8 para 5124 at 39 weeks 1 days gestation undergoing elective induction of labor Plan: 1. Continue Pitocin per labor induction protocol. 2. She is a candidate for all forms of labor analgesia. She is planning an unmedicated . 3. Expect vaginal delivery Objective Vital Signs: Last Vital Signs Temp 97.7 F 01/23/25 14:12 Pulse 71 01/23/25 15:02 Resp 16 01/23/25 07:38 BP 103/59 L 01/23/25 15:02 Pulse Ox 97 01/23/25 07:38
--- NOTE | 2025-01-23 18:29 | W.PM.OBVAGDE ---
OB Procedure Vag Delivery Mother Details Mother Details: So is a 29 year-old G 8 P 5024 now 5 admitted on 01/23/2025 at 39 Weeks, 1 Day gestation for induction of labor. AROM occurred at 3:52 p.m. on 01/23/2025 with clear fluid. Labor Analgesia: None Pitocin: Yes Labor onset: 01/23/2025 at 3:52 p.m.. Complete: 01/23/2025 at 5:52 p.m.. Pushin01/23/2025 at 5:52 p.m.. heart tones during second stage were: Category 2 with moderate variability and small variable decelerations with contractions, reassuring. At 5:54 p.m. a viable male infant delivered in vertex RENEA presentation over intact perineum via vaginal after section (). The was placed on maternal abdomen. There was a nuchal cord and when an attempt was made to reduce the nuchal cord the umbilical cord able cyst from the insertion site as the cord had a velamentous insertion. The cord was held until it could be clamped. Nose and mouth were bulb suctioned. Infant weight pending. 8 at 1 minute and 8 at 5 minutes. Shoulder dystocia: No. Nuchal cord: Yes. Placenta delivered spontaneously and complete at 6:09 p.m. with a 3 vessel cord with obvious velamentous insertion where the cord had a vulvar cyst from its insertion site. Laceration(s): None Blood loss: 150 mL. Blood loss measurement type: Estimated Sponge and needles counts are correct. Specimen: None Mother and infant were stable after delivery. 's name: Mingo The patient is planning on breast feeding. : 8 Para: 5 Weeks Gestation: 39 Admission Date: 01/23/25 Additional Details Amniotic Membrane Status: AROM Amniotic Membrane Rupture Date: 01/23/25 Amniotic Membrane Rupture Time: 15:52 Amniotic Membrane Fluid Description: Clear Analgesia/Anesthesia Type: None Waterbirth: No Pitcoin: Yes Intrapartal Events: Labor Induction Induction Method: per pitocin protocol and AROM Labor Onset: 15:52 Complete: 17:52 Pushin:54 Delivery Details Delivery Date: 01/23/25 Delivery Time: 17:54 Route of delivery: Infant Gender: Male Infant Viability: Alive; Heart Rate Present Position at Delivery: OA 1 Minute Interval Total Score: 8 5 Minute Interval Total Score: 8 Additional Details Shoulder Dystocia: No Placenta Delivery Time: 18:09 Placental Delivery Description: Spontaneous Procedure Done: Global Blood Loss: 150 Laceration: None Blood Loss Measurement Type: EBL Bakri Used: No Sponge/Need Count Correct: Yes Cord Vessel Description: 3 Vessels and Avulsion Event Summary Status: Mother and were stable after delivery. Disposition: floor
[2025-01-24] VITALS: BP 104/65; PULSE 73; RESP 16; TEMP 36.6; O2SAT 97
[2025-01-24] MEDS: IBUP 600 EACH PO (00:32)
[2025-01-24 03:10] VITALS: BP 99/62; PULSE 71; RESP 16; TEMP 36.4; O2SAT 97
[2025-01-24 06:41] LABS: Hemoglobin* 10.4 gm/dL (12.0-16.0)
--- NOTE | 2025-01-24 07:36 | P.DS_ITS ---
DS: Providers Provider Time Seen by Provider: 07:37 Date Seen: 01/24/25 Date of admission: 01/23/25 08:06 Primary care physician: Not a Local Provider Admitting Clinician: Judy Aguila MD Attending Physician on discharge: Judy Aguila MD Date of Discharge: 01/24/25 DS: Diagnosis Discharge Diagnosis (1) (vaginal after ): Status: Acute Problem details: Mingo, Apgars 8/8. 5:54pm Exam Narrative: Exam Narrative: GENERAL APPEARANCE: Pleasant, , well-groomed woman in no acute distress. VITAL SIGNS: as noted in nursing notes HEAD: Normocephalic, atraumatic. THYROID: no masses, nodularity, tenderness or enlargement. LUNGS: Clear to auscultation bilaterally without wheezes, rales or rhonchi. HEART: Regular rate and rhythm with normal S1 and S2. No gallop, rub or murmur. ABDOMEN: Gravid. Soft, nontender, nondistended, with normal bowels sounds throughout. Fundus firm 2 cm below the umbilicus in the midline. NEUROLOGIC: Normal gait and balance. Normal deep tendon reflexes at bilateral patella 2+/2, equal without clonus. PSYCHIATRIC: alert and oriented x3. Normal speech pattern, eye contact and affect. SKIN: Warm, dry, and well perfused. Good turgor. No lesions, nodules or rashes. Const: Vital Signs, click to edit/add: Vital Signs - 24 hr 01/23/25 07:38 01/23/25 11:56 01/23/25 13:07 Temperature 98.2 F 98 F Pulse Rate 81 76 86 Pulse Rate [Pulse Oximeter] Respiratory Rate 16 Blood Pressure 105/59 L 108/60 104/61 Blood Pressure [Le ft Arm] Pulse Oximetry 97 Oxygen Delivery Me thod 01/23/25 14:04 01/23/25 14:12 01/23/25 15:02 Temperature 97.7 F Pulse Rate 74 71 Pulse Rate [Pulse Oximeter] Respiratory Rate Blood Pressure 110/59 L 103/59 L Blood Pressure [Le ft Arm] Pulse Oximetry Oxygen Delivery Me thod 01/23/25 16:05 01/23/25 16:08 01/23/25 17:58 Temperature 97.8 F Pulse Rate 73 77 Pulse Rate [Pulse Oximeter] Respiratory Rate Blood Pressure 110/67 107/57 L Blood Pressure [Le ft Arm] Pulse [facility] 18[facility]03 01/23/25 18:08 01/23/25 18:13 Temperature Pulse Rate Pulse Rate [Pulse Oximeter] Respiratory Rate Blood Pressure Blood Pressure [Le ft Arm] Pulse Oximetry 100 99 [facility] 18:20 01/23/25 18:34 01/23/25 18:55 Temperature Pulse Rate 80 62 65 Pulse Rate [Pulse Oximeter] Respiratory Rate Blood Pressure 98/55 L 112/55 L 103/55 L Blood Pressure [Le ft Arm] Pulse Oximetry [facility] 19:16 01/23/25 19:33 01/23/25 19:50 Temperature Pulse Rate 67 72 82 Pulse Rate [Pulse Oximeter] Respiratory Rate Blood Pressure 106/59 L 97/55 L 98/56 L Blood Pressure [Le ft Arm] Pulse Oximetry [facility] 20:06 01/23/25 20:15 01/24/25 00:00 Temperature 97.9 F Pulse Rate 80 Pulse Rate [Pulse Oximeter] 76 73 Respiratory Rate 16 Blood Pressure 109/54 L Blood Pressure [Le ft Arm] 100/63 104/65 Pulse Oximetry 97 Oxygen Delivery Me thod Room Air 01/24/25 03:10 Temperature 97.6 F Pulse Rate Pulse Rate [Pulse Oximeter] 71 Respiratory Rate 16 Blood Pressure Blood Pressure [Le ft Arm] 99/62 Pulse Oximetry 97 Oxygen Delivery Me thod Room Air OB - DS: Summary Hospital Course Hospital Course: So is a 29 year old G 8 P 5024 now 5 at 39 and1/7 weeks gestation that was admitted to the Center on 01/23/25 for elective induction of labor. Planning TOLAC. She had an uncomplicated vaginal delivery: Successful #2. She delivered a viable male . She is breast feeding. the patient has done well. She would like to be discharged before 24 hours . Peripartum Data Laceration description: None Gender: Male [place] Infant A Infant Gender: Male Time Spent with Patient Time attestation: Total time spent providing and/or coordinating discharge services: Time spent: Less than 30 minutes Discharge Plan Discharge Disposition: Home, Self-Care Date of Admission: 01/23/25 08:06 Attending Provider on Discharge: Judy Aguila Primary Care Provider: Provider,Not a Local Condition: Stable Anticipated Discharge Date/Time: 01/24/25 08:39 Discharge Medications: New docusate sodium 100 mg Capsule 100 mg PO BID PRN (Reason: constipation) Qty: 100 0RF ibuprofen [Children's Ibuprofen] 100 mg/5 mL Suspension 600 mg PO Q6H PRNQty: 30 0RF Continued DHA 200 mg capsule 200 mg PO DAILY ferrous sulfate 325 mg (65 mg iron) tablet 325 mg PO Q OTHER DAY Qty: 60 3RF Discharge Orders: Discharge Order (Routine); Ordered 01/24/25 Ordered By: Judy Aguila Patient Education: Vaginal Delivery (DC) Additional Instructions: Nothing vaginally for 6 weeks: no tampons or intercourse Do not drive while taking narcotic pain medication(s) Off Work or School for a minimum of 6 weeks No lifting or exercise restrictions. Symptoms to report to doctor: * Bleeding that saturates more than one pad per hour * Passing clots larger than the size of a golf ball * Pain not relieved by prescribed medication * Fever above 100.4 degrees Fahrenheit * A foul vaginal odor * Difficulty in emotions, mood, and functions * Thoughts of hurting yourself and/or * Painful, reddened area in your breast * Any drainage, redness, or tenderness in your IV/epidural site * Severe headache that doesn't improve after taking medications * Changes in vision, including temporary loss of vision, blurred vision, and/or light sensitivity * Upper abdominal pain (usually under ribs on the right side) * Decrease in urination or painful, frequent urinating * Chest pain * Shortness of breath * Tenderness or pain with redness and/swelling in the calf(s) of your leg Follow-up appointments Optional 2-week visit: discuss feeding concerns, review control options and screen for anxiety/depression. 6-week visit for an annual exam. consultation services are available to all mothers and babies for the first year after delivery.? To make an appointment, please call [phone]. Activity Level: Other Discharge Diet: Regular Follow Up Appointments: Provider,Not a Local [Primary Care Provider, Family Practice] Judy Aguila MD [Staff Physician, ALUMINUM SIDING APPLICATOR] Forms: [facility] Info Instructions
[2025-01-24 07:57] VITALS: BP 102/67; PULSE 73; RESP 16; TEMP 36.8; O2SAT 97
== END 2025-01-24 08:20 | disposition home or self-care (01) | DRG 560 ==
PROVIDERS: Admitting Provider Obstetrics & Gynecology; Visit Provider Obstetrics & Gynecology
DX: O34.211 Maternal care for low transverse scar from previous cesarean delivery (principal); O43.123 Velamentous insertion of umbilical cord, third trimester; Z3A.39 39 weeks gestation of pregnancy; Z37.0 Single live birth
CPT/HCPCS: 36415; 85018; 85025; 86592; 86850; 86900; 86901; J7120

== ENCOUNTER 2025-03-08 10:06 | Outpatient (CLI) | payer BC, SELFPAY ==
[2025-03-10 01:01] LABS: HPV Source Cervix
[2025-03-18 12:34] LABS: Pap Test Reviewed by Pathologi Done; Pap Test Screened Manually Done
== END 2025-03-08 10:07 | disposition home or self-care (01) ==
PROVIDERS: Visit Provider Physician Assistant
DX: Z12.4 Encounter for screening for malignant neoplasm of cervix (principal); Z11.51 Encounter for screening for human papillomavirus (HPV)
CPT/HCPCS: 87624; 87625; 88141; 88142; 88175